=== PATIENT | male | born 1995 | race Caucasian/White ===

== ENCOUNTER 2024-04-03 14:47 | Emergency (ER) | payer OTHER ==
[~2024-04-03] VITALS: Ht 172.7 cm; Wt 77.1 kg
[2024-04-03 15:20] LABS: BASOPHILS % (AUTO) 0.5 % (0.0-2.0); EOSINOPHILS # (AUTO) 0.1 K/uL (0.0-0.7); EOSINOPHILS % (AUTO) 0.7 % (0.0-7.0); HEMATOCRIT 41.2 % (36.7-47.1); HEMOGLOBIN 14.2 g/dL (12.5-16.3); LYMPHOCYTES # (AUTO) 1.3 K/uL (0.8-4.8); LYMPHOCYTES % (AUTO) 17.8 % (20.5-51.5); MEAN CORPUSCULAR HEMOGLOBIN 29.1 uug (23.8-33.4); MEAN CORPUSCULAR HGB CONC 35 g/dL (32.5-36.3); MEAN CORPUSCULAR VOLUME 84.5 fL (73.0-96.2); MONOCYTES # (AUTO) 0.7 K/uL (0.1-1.30); NEUTROPHILS # (AUTO) 5.3 K/uL (1.8-8.9); PLATELET COUNT (AUTO) 220 K/uL (152-348); RED BLOOD CELL COUNT(AUTO) 4.88 MIL/uL (4.06-5.63); WHITE BLOOD COUNT (AUTO) 7.4 K/uL (3.6-10.2)
[2024-04-03 15:26] LABS: DIFFERENTIAL COMMENT 1
[2024-04-03 15:34] LABS: CALCIUM 8.5 mg/dL (8.5-10.1); CARBON DIOXIDE 24 mmol/L (21-32); CHLORIDE 100 mmol/L (98-107); CREATININE 0.7 mg/dL (0.6-1.3); GLUCOSE 90 mg/dL (74-106); POTASSIUM 3.3 mmol/L (3.5-5.1); SODIUM SERUM 135 mmol/L (136-145); UREA NITROGEN, BLOOD 10 mg/dL (7-18)
[2024-04-03 15:40] LABS: ALBUMIN 3.6 g/dL (3.4-5.0); BILIRUBIN,DIRECT 0.1 mg/dL (0.0-0.2); BILIRUBIN,TOTAL 0.3 mg/dL (0.2-1.0); TOTAL PROTEIN, SERUM 6.9 g/dL (6.4-8.2)
[2024-04-03] MEDS ORDERED: CLON0.5T4 PO (17:28)
[2024-04-03] MEDS ORDERED: BENZ2TAB7 PO (17:28)
[2024-04-03] MEDS ORDERED: HALO10TA13 PO (17:28)
[2024-04-03] MEDS ORDERED: CLON1TAB12 PO (17:28)
[2024-04-03] MEDS ORDERED: DIVA500T54 PO (17:28)
[2024-04-03] MEDS ORDERED: CARB200C6 PO (17:28)
[2024-04-03] MEDS ORDERED: PROP20TA7 PO (17:42)
[2024-04-03] MEDS ORDERED: TOPI100T38 PO (17:42)
[2024-04-03] MEDS ORDERED: RISP2TAB85 PO (17:42)
[2024-04-03 19:21] VITALS: BP 112/61; TEMP 98; O2SAT 98
== END 2024-04-03 19:22 | disposition home or self-care (01) ==
LOC: ER 14:47
DX: G40.909 Epilepsy, unspecified, not intractable, without status epilepticus (principal); R07.9 Chest pain, unspecified
CPT/HCPCS: 36415; 84484; 85025; 85730; A4606; A4663